=== PATIENT | female | born 1970 | race Caucasian/White ===

== ENCOUNTER 2021-11-16 08:40 | Outpatient (CLI) | payer BC, SELFPAY ==
[2021-11-16 09:02] VITALS: BMI 40.5
[2021-11-16 09:03] VITALS: BP 149/90; PULSE 72; RESP 14; TEMP 36.8; O2SAT 98
[2021-11-16] MEDS: diphenhydrAMINE HCl CAP 25 MG CAPSULE PO (09:13)
[2021-11-16] MEDS: FAMOTIDINE 20 MG TABLET PO (09:13)
[2021-11-16] MEDS: ACETAMINOPHEN 325 MG TABLET 650 MG PO (09:13)
[2021-11-16 10:05] VITALS: BP 141/90; PULSE 88; RESP 14; TEMP 36.7; O2SAT 97
--- NOTE | 2021-11-16 10:06 | PC.NURSE ---
Patient here for Bamlanivimab and Etesevimab IV infusion due being positive for covid and meeting high risk criteria. Medication education given. Consent signed. PO pre meds and IV Bamlanivimab/Etesevimab administered. SEE MAR. Tolerated well. No s/sx of infusion reaction noted or reported. Safe exit of hospital.
== END 2021-11-16 08:41 | disposition home or self-care (01) ==
LOC: CHSTREATRM 08:43
PROVIDERS: PCP Internal Medicine; Visit Provider Internal Medicine
DX: U07.1 COVID-19 (principal); Z79.899 Other long term (current) drug therapy
CPT/HCPCS: A9270; M0245; Q0245

== ENCOUNTER 2022-06-24 16:26 | Emergency (ER) | payer BC, SELFPAY ==
[2022-06-24 16:36] VITALS: BP 130/88; PULSE 74; RESP 16; TEMP 35.9; O2SAT 99
--- NOTE | 2022-06-24 16:49 | ED.SKABFB ---
HPI - Skin/Abscess/Foreign Bdy General Chief complaint: Skin/Abscess/Foreign Body Stated complaint: Left pointer finger possible infection Time Seen by Provider: 06/24/22 16:45 Source: patient, RN notes reviewed and old records reviewed Mode of arrival: ambulatory Limitations: no limitations History of Present Illness HPI narrative: 52 year old female who presents to [facility] with paronychia since yesterday to her left index finger with redness and tenderness to nail bed and to radial side of her left index finger nail bed. Patient has yellowish greenish colored tissue noted to radial aspect of nail bed no drainage noted. Patient denies any fevers, chills or sweats. She has not applied any OTC ointment or ice to area. MD complaint: other (paronychia) Onset (ago): day(s) (1) Tetanus up to date: yes Location: L hand (index finger) Severity scale (1-10): 3 Quality: aching Treatments prior to arrival: none Related Data Home Medications Medication Instructions Recorded Confirmed hydroxychloroquine 100 mg tablet 200 mg PO BID 11/16/21 06/24/22 melatonin 3 mg tablet 3 mg PO HS PRN Sleep 11/16/21 06/24/22 methotrexate (PF) 20 mg/0.8 mL 20 mg subcut WEEKLY 11/16/21 06/24/22 subcutaneous syringe zolpidem 5 mg tablet 5 mg PO HS PRN Sleep 11/16/21 06/24/22 folic acid 1 mg tablet 1 mg PO DAILY 06/24/22 06/24/22 leflunomide 10 mg tablet 30 mg PO DIRECTED 06/24/22 06/24/22 Allergies Allergy/AdvReac Type Severity Reaction Status Date / Time codeine Allergy Mild Other Verified 06/24/22 16:31 Review of Systems Review of Systems: CONSTITUTIONAL: Denies fever, chills, or sweats. EYES: Denies visual changes, redness, or discharge. ENT: Denies rhinorrhea, congestion, sore throat, or otalgia. CARDIOVASCULAR: Denies chest pain, palpitations, or edema. RESPIRATORY: Denies cough or dyspnea. GASTROINTESTINAL: Denies abdominal pain, nausea, vomiting, or diarrhea. GENITOURINARY: Denies dysuria or hematuria. SKIN: Denies rash or itching. Paronychia left index finger MUSCULOSKELETAL: Denies back pain, joint pain, or myalgia. NEUROLOGIC: Denies headache, numbness, or weakness. PSYCHIATRIC: Denies anxiety or depression. All systems reviewed & are unremarkable except as noted in HPI and below PMFSH Past Medical History Medical History (Updated 06/25/22 @ 00:00 by Adalberto Guevara) Lupus (systemic lupus erythematosus) Surgical History Surgical History (Updated 06/24/22 @ 17:02 by Marie Rangel NP) H/O oophorectomy History of cholecystectomy History of tonsillectomy Family History Family History (Updated 06/24/22 @ 17:01 by Marie Rangel NP) Father History of blood clots Grandparent Breast cancer Social History Social History (Updated 06/24/22 @ 17:01 by Marie Rangel NP) Smoking status: Never smoker Alcohol intake: never Substance use: never Living arrangements: with family Gender identity (if verbalized by the patient): Female Comments At time of signature, agree with nursing past medical, surgical, social and family history. There is no relevant family history pertinent to the presenting complaint Exam Narrative: GENERAL: Well-appearing, well-nourished, and in no acute distress. HEAD: Normocephalic, atraumatic. EYES: PERRLA and EOMI. ENT: Nares clear, no rhinorrhea or epistaxis. Mucous membranes moist.TM's normal throat with no redness or swelling NECK: Supple. No lymphadenopathy CHEST: Clear to auscultation. No respiratory distress.SAO2 99% on room air HEART: Regular rate and rhythm. No murmur heard. Normal peripheral pulses. ABDOMEN: Soft, nontender, nondistended, normal active bowel sounds. EXTREMITIES: Normal range of motion. No edema. SKIN: Warm, dry, no rash. Red swollen tissue along proximal nail bed left index finger with yellowish greenish color to tissue along radial aspect of nail bed of left index finger with no drainage noted, tender to palpation NEURO: No focal deficits. Burt
== END 2022-06-24 17:08 | disposition home or self-care (01) ==
PROVIDERS: Emergency Provider Registered Nurse
DX: L03.012 Cellulitis of left finger (principal); M32.9 Systemic lupus erythematosus, unspecified
CPT/HCPCS: 99213; G0463

== ENCOUNTER 2023-01-18 09:25 | Outpatient (CLI) | payer BC, SELFPAY ==
--- NOTE | ~2023-01-18 | US_ITS ---
Limited Abdominal Sonogram: Real-time sonographic imaging of the right upper quadrant was performed. Clinical History: Abnormal liver enzymes Findings: The liver appears normal with no evidence of mass lesion or bile duct dilatation. Main por yomi vein demonstrates normal direction of flow. The gallbladder is absent, consistent with prior chol ecystectomy. The common bile duct measures 5 mm. The visualized pancreas, aorta, and IVC are unremar kable. Impression: Status post cholecystectomy, otherwise unremarkable exam. Reviewed, dictated and finalized at location M. Impression: Status post cholecystectomy, otherwise unremarkable exam.
== END 2023-01-18 09:26 | disposition home or self-care (01) ==
LOC: CHSIMG 09:27
PROVIDERS: PCP Internal Medicine; Visit Provider Internal Medicine
DX: R74.8 Abnormal levels of other serum enzymes (principal); Z90.49 Acquired absence of other specified parts of digestive tract
CPT/HCPCS: 76705

== ENCOUNTER → 2023-04-03 09:03 | Outpatient (CLI) | payer OTHER, SELFPAY ==
--- NOTE | ~2023-04-03 | MR_ITS ---
EXAMINATION: MR brain/brain stem wo con DATE: 04/03/2023 09:59 INDICATION: Headache. TECHNIQUE: Magnetic resonance imaging (MRI) of the brain and brainstem was performed without intraven ous contrast. COMPARISON: None. FINDINGS: There is no intracranial hemorrhage, acute infarction, or abnormal intracranial mass lesion . There are scattered areas of nonspecific increased T2-weighted signal intensity in the cerebral whi te matter, which is within normal limits for the patient's age. The ventricles are normal in size. Th e orbits are normal. There is mild mucosal thickening in the ethmoid sinuses. The mastoid air cells a re normal. IMPRESSION: 1. Normal aging brain. Reviewed, dictated and finalized at location A. IMPRESSION: 1. Normal aging brain.
== END ==
PROVIDERS: PCP Internal Medicine; Visit Provider Internal Medicine
DX: R51.9 Headache, unspecified (principal)
CPT/HCPCS: 70551

== ENCOUNTER 2024-09-10 16:23 | Emergency (ER) | payer OTHER, SELFPAY ==
[2024-09-10 16:32] VITALS: BP 137/95; PULSE 68; RESP 20; TEMP 36.7; O2SAT 100
--- NOTE | 2024-09-10 16:34 | ED_ITS ---
HPI - Extremity Problem General Chief complaint: Extremity Problem,Nontraumatic Stated complaint: right big toe issue Time Seen by Provider: 09/10/24 16:35 Source: patient Mode of arrival: ambulatory Limitations: no limitations History of Present Illness HPI Narrative: Rena is a 54-year-old female patient presenting to the clinic today with complaints of right great toe issue. She reports yesterday she developed some toe pain across the cuticle area of the right great toe. This morning she woke up and the area was red and swollen. States that it had a yellow pustule area as well. As the day went on this area has become more red and swollen and is now extending to the mid toe. No fever or chills. Related Data Home Medications Medication Instructions Recorded Confirmed hydroxychloroquine 100 mg tablet 200 mg PO BID 11/16/21 09/10/24 zolpidem 5 mg tablet 5 mg PO HS PRN Sleep 11/16/21 09/10/24 folic acid 1 mg tablet 1 mg PO DAILY 06/24/22 09/10/24 leflunomide 10 mg tablet 30 mg PO DIRECTED 06/24/22 09/10/24 meloxicam 15 mg tablet 15 mg PO DAILY 09/10/24 09/10/24 zolpidem 5 mg tablet 5 mg PO DAILY 09/10/24 09/10/24 Allergies Allergy/AdvReac Type Severity Reaction Status Date / Time codeine Allergy Mild Other Verified 09/10/24 16:38 Review of Systems Review of Systems: Pertinent positives per HPI. Patient denies any fever, chills, rash, headache, visual changes, dizziness, cough, runny nose, sore throat, shortness of breath, chest pain, palpitations, nausea, vomiting, diarrhea, constipation, abdominal pain, or any urinary issues. [facility] Past Medical History Medical History Lupus (systemic lupus erythematosus) Surgical History Surgical History H/O oophorectomy History of cholecystectomy History of tonsillectomy Family History Family History Father History of blood clots Grandparent Breast cancer Social History Social History Smoking status: Never smoker Alcohol intake: never Substance use: never Living arrangements: with family Gender identity (if verbalized by the patient): Female Comments At the time of my signature, I reviewed and agree with the nursing past medical, surgical, social, and family history. There is no relevant family history pertinent to the patient complaint. Exam Narrative: General: Well-developed, well nourished, in no apparent distress Head: Normocephalic, atraumatic. Cardio: Regular rate and rhythm, s1 and s2 normal, no murmur appreciated. Resp: Clear to auscultation bilaterally, no rhonchi, rales, wheezing or rubs. Musculoskeletal: No deformity, redness and swelling to the right great distal to mid toe, pustule lesion to the lateral toe near the cuticle, tender to palpation with mild erythema, grossly normal range of motion, muscle strength strong and equal, peripheral pulse strong, no edema, no cyanosis, normal gait and station Course Course Emergency Course: Portions of this record may have been created with voice recognition software. Level of Care: Express Care Visit Vital Signs Vital signs: Vital signs reviewed MDM - Extremity (Nontraumatic) MDM Narrative Medical decision making narrative: At the time of visit patient is resting comfortably on the exam table. Patient appears to be nontoxic. Plan: I suspect patient has a great toe infection/cellulitis. Prescription for cephalexin M Xavier cream was sent to the pharmacy. Supportive measures were discussed with the patient and they voiced understanding discharge instructions and agrees to treatment plan. Return precautions reviewed Differential Diagnosis Differential diagnosis: Likely gout, cellulitis and other (Paronychia, insect bite) Discharge Plan Discharge Clinical Impression: Infection of toe Cellulitis of great toe Qualifiers: Laterality: right Qualified Code(s): L03.031 - Cellulitis of right toe Patient Disposition: Home, Self-Care Condition: Stable Instructions: Antibiotic Form, Cellulitis (ED) Additional Instructions: Increase fluids and stay well hydrated May complete Epsom salt soaks-3-4 times daily in warm water Take Tylenol/Motrin as needed for pain fever Take Keflex and mupirocin as prescribed Follow-up with your therapeutic recreation leader in 3-5 days if symptoms persist or sooner if symptoms worsen Prescriptions: New cephalexin 500 mg capsule 500 mg PO Q8H 10 Days Qty: 30 0RF mupirocin 2 % ointment 1 applic topical BID 7 Days Qty: 22 0RF No Action zolpidem 5 mg Tablet 5 mg PO HS PRN (Reason: Sleep) hydroxychloroquine 100 mg Tablet 200 mg PO BID meloxicam 15 mg tablet 15 mg PO DAILY zolpidem 5 mg tablet 5 mg PO DAILY leflunomide 10 mg tablet 30 mg PO DIRECTED folic acid 1 mg tablet 1 mg PO DAILY Follow-up/Referrals: PHYSICIAN NOT ON STAFF,NONSTAFF [Primary Care Provider] - Time of Disposition: 16:45 Quality NIHSS Nursing Documentation ED NIHSS nursing documentation: reviewed/agree
== END 2024-09-10 16:50 | disposition home or self-care (01) ==
PROVIDERS: Emergency Provider Nurse Practitioner Family
DX: L03.031 Cellulitis of right toe (principal); M32.9 Systemic lupus erythematosus, unspecified
CPT/HCPCS: 99213; G0463